=== PATIENT | female | born 1980 | race Caucasian/White ===

== ENCOUNTER 2017-03-08 01:02 | Emergency (ER) | payer OTHER ==
[~2017-03-08] VITALS: Ht 160 cm; Wt 95.0 kg
[2017-03-08 01:07] VITALS: BP 160/80; PULSE 75; RESP 16; TEMP 97.7; O2SAT 100
--- NOTE | 2017-03-08 02:07 | RADRPT ---
EXAM DATE/TIME: 03/08/2017 01:36 [place] COMPARISON: No previous studies available for comparison. INDICATIONS : Chest pain radiates down arms. MEDICAL HISTORY : None. SURGICAL HISTORY : None. ENCOUNTER: Initial ACUITY: 1 day PAIN SCORE: 9/10 LOCATION: Bilateral chest FINDINGS: A single view of the chest demonstrates the lungs to be symmetrically aerated without evidence of mas s, infiltrate or effusion. The cardiomediastinal contours are unremarkable. Osseous structures are intact. CONCLUSION: No acute disease. Aldo Camp MD on March 08, 2017 at 2:05 Board Certified Radiologist. This report was verified electronically.
[2017-03-08 02:33] LABS: AUTOMATED NEUTROPHIL # 6.5 TH/MM3 (1.8-7.7); BASOPHIL % 0.2 % (0.0-2.0); EOSINOPHIL # 0.1 TH/MM3 (0-0.4); EOSINOPHIL % 0.9 % (0.0-4.0); HEMATOCRIT 39.6 % (35.0-46.0); HEMO FLAGS DIFF FINAL; LYMPH % 32.2 % (9.0-44.0); LYMPHOCYTE # 3.5 TH/MM3 (1.0-4.8); MEAN CELL VOLUME 82.8 FL (80.0-100.0); MEAN CORPUSCULAR HEMOGLOBIN 27.2 PG (27.0-34.0); MEAN CORPUSCULAR HGB CONC 32.8 % (32.0-36.0); MONO % 7.2 % (0.0-8.0); NEUT % 59.5 % (16.0-70.0); PLATELET COUNT 294 TH/MM3 (150-450); RED BLOOD COUNT 4.78 MIL/MM3 (4.00-5.30)
[2017-03-08 02:56] VITALS: O2SAT 100
[2017-03-08 02:56] LABS: ANION GAP 7 MEQ/L (5-15); BICARBONATE 21.1 MEQ/L (21.0-32.0); BLOOD UREA NITROGEN 10 MG/DL (7-18); CHLORIDE 108 MEQ/L (98-107); CREATINE KINASE 201 U/L (26-192); GLOMERULAR FILTRATION RATE 74 ML/MIN (>89); SODIUM (NA) 136 MEQ/L (136-145)
[2017-03-08 02:57] LABS: POTASSIUM 5.9 MEQ/L (3.5-5.1)
[2017-03-08 03:10] LABS: CKMB 0.9 NG/ML (0.5-3.6)
--- NOTE | 2017-03-08 05:00 | PD ---
HPI Chief Complaint: Chest Pain Time Seen by Provider: 02:42 Travel History International Travel<30 days: No Contact w/Intl Traveler<30days: No Traveled to known affect area: No History of Present Illness HPI Patient is a 36-year-old female comes in complaining of chest pain. She says that she woke up from sleep with pain to the right side of her chest and numbness in her right arm. She says she felt some palpitations and a little short of breath. She says she's been under an extreme amount of stress lately due to her recent move in with her in-laws. She has no medical problems. She denies smoking or any drug use. She denies any family history of early cardiac . Currently she is asymptomatic. She has not had any nausea or vomiting. She denies any diaphoresis. [facility] Past Medical History Medical History: Denies Significant Hx Tetanus Vaccination: < 5 Years Influenza Vaccination: Yes ?: Not LMP: 2 WEEKS AGO Tubal Ligation: Yes Past Surgical History Abdominal Surgery: Yes (EX LAP) Section: Yes Tonsillectomy: Yes Social History Alcohol Use: No Tobacco Use: No Substance Use: No Allergies-Medications (Allergen,Severity, Reaction): Coded Allergies: No Known Allergies (Unverified , 03/08/17) Reported Meds & Prescriptions Reported Meds & Active Scripts Active No Active Prescriptions or Reported Medications Review of Systems Except as stated in HPI: all other systems reviewed are Neg General / Constitutional: No: Fever, Chills Eyes: No: Blurred Vision HENT: No: Headaches, Lightheadedness Cardiovascular: Positive: Chest Pain or Discomfort, Palpitations Respiratory: Positive: Shortness of Breath Gastrointestinal: No: Nausea, Vomiting, Abdominal Pain Musculoskeletal: No: Myalgias, Edema, Pain Skin: No Rash, No Change in Pigmentation Neurologic: Positive: Paresthesia, No: Weakness, Dizziness Physical Exam Narrative GENERAL: Awake and alert, in no acute distress. SKIN: Focused skin assessment warm/dry. HEAD: Atraumatic. Normocephalic. EYES: Pupils equal and round. No scleral icterus. Extraocular movements intact. ENT: Mucous membranes pink and moist. NECK: Trachea midline. No JVD. CARDIOVASCULAR: Regular rate and rhythm. No murmur appreciated. RESPIRATORY: No accessory muscle use. Clear to auscultation. Breath sounds equal bilaterally. GASTROINTESTINAL: Abdomen soft, non-tender, nondistended. MUSCULOSKELETAL: No obvious deformities. No clubbing. No cyanosis. No edema. NEUROLOGICAL: Awake and alert. No obvious cranial nerve deficits. Motor grossly within normal limits. Normal speech. PSYCHIATRIC: Appropriate mood and affect; insight and judgment normal. Data Data Last Documented VS Vital Signs Date Time Temp Pulse Resp B/P (MAP) Pulse Ox O2 Delivery O2 Flow Rate FiO2 03/08/17 02:56 100 Room Air 03/08/17 01:07 97.7 75 16 Orders Orders Electrocardiogram (03/08/17 01:38) Complete Blood Count With Diff (03/08/17 01:38) Basic Metabolic Panel (Bmp) (03/08/17 01:38) Ckmb (Isoenzyme) Profile (03/08/17 01:38) Troponin I (03/08/17 01:38) Chest, Single Ap (03/08/17 01:38) Iv Access Insert/Monitor (03/08/17 01:38) Ecg Monitoring (03/08/17 01:38) Oxygen Administration (03/08/17 01:38) Oximetry (03/08/17 01:38) D-Dimer (03/08/17 02:24) CKMB (03/08/17 02:20) CKMB% (03/08/17 02:20) Labs Laboratory Tests Test 03/08/17 02:20 03/08/17 03:13 White Blood Count 11.0 TH/MM3 Red Blood Count 4.78 MIL/MM3 Hemoglobin 13.0 GM/DL Hematocrit 39.6 % Mean Corpuscular Volume 82.8 FL Mean Corpuscular Hemoglobin 27.2 PG Mean Corpuscular Hemoglobin Concent 32.8 % Red Cell Distribution Width 14.0 % Platelet Count 294 TH/MM3 Mean Platelet Volume 9.1 FL Neutrophils (%) (Auto) 59.5 % Lymphocytes (%) (Auto) 32.2 % Monocytes (%) (Auto) 7.2 % Eosinophils (%) (Auto) 0.9 % Basophils (%) (Auto) 0.2 % Neutrophils # (Auto) 6.5 TH/MM3 Lymphocytes # (Auto) 3.5 TH/MM3 Monocytes # (Auto) 0.8 TH/MM3 Eosinophils # (Auto) 0.1 TH/MM3 Basophils # (Auto) 0.0 TH/MM3 CBC Comment DIFF FINAL Differential Comment Blood Urea Nitrogen 10 MG/DL Creatinine 0.87 MG/DL Random Glucose 109 MG/DL Calcium Level 8.5 MG/DL Sodium Level 136 MEQ/L Potassium Level 5.9 MEQ/L Chloride Level 108 MEQ/L Carbon Dioxide Level 21.1 MEQ/L Anion Gap 7 MEQ/L Estimat Glomerular Filtration Rate 74 ML/MIN Total Creatine Kinase 201 U/L Creatine Kinase MB 0.9 NG/ML Creatine Kinase MB % 0.4 % Troponin I LESS THAN 0.02 NG/ML D-Dimer Quantitative (PE/DVT) 0.30 MG/L FEU MDM Medical Decision Making Medical Screen Exam Complete: Yes Emergency Medical Condition: Yes Interpretation(s) ECG shows normal sinus rhythm, no ST elevation or depression, normal intervals Differential Diagnosis Electrolyte abnormality versus ACS versus anxiety Narrative Course Patient is a 36-year-old female who comes in complaining of chest pain. Exam shows no acute abnormalities. Currently she is asymptomatic. IV established, labs sent. Patient connected to the offender employment specialist. Labs show no acute abnormalities. Troponin and d-dimer are within normal limits. I advised the patient that I cannot be 100% sure she is not having a heart attack, though it seems unlikely at this time. Patient is offered admission, but she would like to go home. She is advised follow-up with a primary care doctor. Advised to return as needed for any worsening symptoms. Diagnosis Primary Impression: Chest pain Qualified Codes: R07.9 - Chest pain, unspecified Referrals: [facility] call for appointment Additional Instructions: Follow-up with a primary care doctor. Return to the ED as needed for any worsening symptoms. Scripts No Active Prescriptions or Reported Meds Disposition: 01 DISCHARGE HOME Condition: Stable Keiry Minaya MD Mar 08, 2017 05:00
[2017-03-08 05:13] VITALS: BP 137/77
--- NOTE | 2017-03-08 21:20 | EKG ---
Date Performed: 03/08/2017 Time Performed: 01:56:56 PTAGE: 36 years EKG: Sinus rhythm NORMAL ECG NO PREVIOUS TRACING DOCTOR: Tonia Bryant Interpretating Date/Time 03/08/2017 21:20:10
== END 2017-03-08 05:45 | disposition home or self-care (01) ==
LOC: NEPE 01:02
DX: R07.9 Chest pain, unspecified (principal); R06.02 Shortness of breath; R20.0 Anesthesia of skin; R00.2 Palpitations
CPT/HCPCS: 71010; 80048; 82550; 82552; 84484; 85025; 85379; 93005; 99285